=== PATIENT | male | born 1985 ===

== ENCOUNTER 2017-12-24 06:55 | Outpatient (CLI) | payer BC ==
--- NOTE | 2017-12-24 08:04 | ULT ---
ABDOMINAL ULTRASOUND COMPLETE: Date: 12/24/17 HISTORY: 32-year-old male with history of abdominal pain. FINDINGS: Liver echotexture is unremarkable. The gallbladder demonstrates no evidence of gallstones, wall thick ening, edema, or pericholecystic fluid. Common bile duct 0.3 cm. No intrahepatic ductal dilatation. L iver, pancreas, IVC, aorta, spleen, and kidneys are unremarkable. No abnormal fluid collection. IMPRESSION: Unremarkable abdominal ultrasound. No evidence of gallstones or other acute process. POS: [facility]
--- NOTE | 2017-12-24 08:43 | ULT ---
BILATERAL TESTICULAR ULTRASOUND INCLUDING COLOR AND SPECTRAL DOPPLER IMAGING: Date: 12/24/17 HISTORY: Abdominal pain, R10.84. FINDINGS: Right testis measures 5.1 x 3.0 x 2.4 cm. Left testis measures 5.0 x 3.0 x 2.5 cm. Epididymal regions are within normal limits. There is trace right-sided hydrocele fluid. Several tiny punctate calcific foci in the right testis, evidence for very mild microlithiasis, with some possible very tiny faint microlithiasis changes in the left testis. No intratesticular mass. Vascular flow is documented bilat erally. No evidence for testicular torsion. IMPRESSION: Tiny trace right-sided hydrocele. Several microcalcifications in both testes, evidence for very minim al changes of microlithiasis. No intratesticular mass. No evidence for testicular torsion. POS: [facility]
== END 2017-12-24 06:56 | disposition home or self-care (01) ==
LOC: BICULT 06:55
PROVIDERS: ATTEND Family Medicine
DX: R10.84 Generalized abdominal pain (principal); N50.9 Disorder of male genital organs, unspecified
CPT/HCPCS: 76700; 76870; 93976